=== PATIENT | female | born 1985 | race Caucasian/White ===

== ENCOUNTER → 2016-05-26 | Outpatient (CLI) | payer OTHER, BC ==
[~2016-05-26] MED LIST: LEXA1TAB2 PO; LINZ145C PO; NORCOTAB PO
[2016-05-26 20:21] LABS: MEAN CORPUSCULAR HEMOGLOBIN 29.7 pg (27.0-33.0); MEAN CORPUSCULAR HGB CONC 32.9 g/dl (32.0-36.5); MEAN CORPUSCULAR VOLUME 90.5 fl (80.0-96.0); RED CELL DISTRIBUTION WIDTH 13.1 % (11.5-14.5)
[2016-05-26 21:22] LABS: BASOPHILS 2 % (0-4); EOSINOPHILS 1 % (0-5)
[2016-05-26 22:00] LABS: ERYTHROCYTE SEDIMENTATION RATE 17 mm/hr (0-20)
[2016-05-28 14:16] LABS: Lyme Disease IgG/IgM Antibodie <0.91 ISR (0.00-0.90); Lyme Disease IgM Ab Quantitati <0.80 index (0.00-0.79); SJOGREN'S ANTI SS-A <0.2 AI (0.0-0.9); SJOGREN'S ANTI SS-B <0.2 AI (0.0-0.9)
== END ==
LOC: M ADAMS 18:29
PROVIDERS: ATTEND Physician Assistant Surgical
DX: M79.622 Pain in left upper arm (principal)

== ENCOUNTER 2016-05-29 13:19 | Emergency (ER) | payer OTHER ==
[~2016-05-29] VITALS: Ht 167.6 cm; Wt 74.8 kg
[2016-05-29 13:20] VITALS: BP 146/74
[2016-05-29] MEDS ORDERED: LEXA1TAB2 PO (13:30)
[2016-05-29] MEDS ORDERED: LINZ145C PO (13:30)
[2016-05-29] MEDS ORDERED: NORCOTAB PO (14:40)
== END 2016-05-29 15:18 | disposition home or self-care (01) ==
LOC: M ED 14:57
DX: M25.522 Pain in left elbow (principal); Z79.899 Other long term (current) drug therapy; Z88.5 Allergy status to narcotic agent

== ENCOUNTER 2017-05-11 07:47 | Day surgery (SDC) | payer OTHER ==
[2017-05-11] MEDS ORDERED: ROPIvacaine 0.5% 30 ML INJECTION (J2795 PER 1MG) (07:48)
[2017-05-11] MEDS ORDERED: dexameTHASONE 10 MG/1 ML VIAL PRES.FREE (J1100) (07:48)
[2017-05-11] MEDS ORDERED: LIDOCAINE 1% SDV 5 ML VIAL SQ (08:00)
[2017-05-11] MEDS ORDERED: ceFAZolin 2 GM/D5W 50 ML IV BAG (J0690 PER 500MG) As Ordered (08:11)
[2017-05-11] MEDS ORDERED: ROCURONIUM BROMIDE 50 MG/5 ML VIAL As Ordered (08:26)
[2017-05-11] MEDS ORDERED: fentaNYL 100 MCG/2 ML INJECTION (J3010) As Ordered ×2 (08:26→09:03)
[2017-05-11] MEDS ORDERED: PROPOFOL 200 MG/20 ML VIAL As Ordered ×2 (08:26→14:01)
[2017-05-11] MEDS ORDERED: LIDOCAINE 2% INJ 100 MG/5 ML SDV (FOR ANES.) As Ordered (08:26)
[2017-05-11 08:29] LABS: CONTROL LINE UCG INT CTR LINE PRESENT; URINE PREG TEST NEGATIVE (NEGATIVE)
[2017-05-11] MEDS: LR 1,000 ML IV ×2 (08:55→09:05)
[2017-05-11] MEDS ORDERED: MIDAZOLAM INJ 2 MG/2 ML VIAL (J2250) As Ordered (09:03)
[2017-05-11] MEDS: MIDAZOLAM INJ 2 MG/2 ML VIAL (J2250) IV (09:25)
[2017-05-11] MEDS: fentaNYL 100 MCG/2 ML INJECTION (J3010) IV (09:25)
[2017-05-11] MEDS: EPINEPHrine 1MG/ML INJ 30ML MD-VIAL As Ordered (12:12)
[2017-05-11] MEDS ORDERED: ONDANSETRON 4MG/2ML VIAL (J2405) As Ordered (13:00)
[2017-05-11] MEDS ORDERED: GLYCOPYRROLATE INJ 0.2 MG/ML 2 ML VIAL As Ordered (13:00)
[2017-05-11] MEDS ORDERED: fentaNYL 100 MCG/2 ML INJECTION (J3010) IV (15:00)
[2017-05-11] MEDS ORDERED: HYDROmorphone HCL 1 MG/ML SYRINGE (J1170) IV (15:00)
[2017-05-11] MEDS ORDERED: PERCOCET 5MG/325MG TAB PO (15:00)
[2017-05-11] MEDS ORDERED: LR 1,000 ML IV ×2 (15:00)
[2017-05-11] MEDS ORDERED: ePHEDrine SULFATE 25 MG/5 ML(5MG/ML) SYRINGE As Ordered ×2 (15:45→15:46)
== END 2017-05-11 17:10 | disposition home or self-care (01) ==
LOC: M SDC 07:47
DX: M25.312 Other instability, left shoulder (principal); S40.012A Contusion of left shoulder, initial encounter; W19.XXXA Unspecified fall, initial encounter; Y92.89 Other specified places as the place of occurrence of the external cause; Y93.89 Activity, other specified; Y99.0 Civilian activity done for income or pay; K58.9 Irritable bowel syndrome, unspecified; F41.9 Anxiety disorder, unspecified; Z88.5 Allergy status to narcotic agent; Z79.899 Other long term (current) drug therapy
CPT/HCPCS: 29806

== ENCOUNTER → 2017-11-23 | Outpatient (CLI) | payer BC, OTHER | LOC: M ADAMS 10:03 | DX: J01.41 Acute recurrent pansinusitis (principal) | CPT/HCPCS: 70220 ==

== ENCOUNTER → 2017-11-30 | Outpatient (REF) | payer OTHER ==
[2017-11-30 13:30] LABS: ESTIMATED AVERAGE GLUCOSE 94 MG/DL (60-110); HEMOGLOBIN A1c 4.9 %
== END ==
LOC: M SFHCPLAZ 08:18
DX: H53.9 Unspecified visual disturbance (principal)

== ENCOUNTER → 2017-12-18 | Outpatient (REF) | payer OTHER | LOC: M LAB REF 12:48 | DX: J02.9 Acute pharyngitis, unspecified (principal) | CPT/HCPCS: 87081 ==

== ENCOUNTER → 2017-12-22 | Outpatient (CLI) | payer BC, OTHER | LOC: M RAD 17:57 | DX: J01.01 Acute recurrent maxillary sinusitis (principal) | CPT/HCPCS: 70486 ==

== ENCOUNTER 2018-04-29 07:57 | Emergency (ER) | payer BC, OTHER ==
[~2018-04-29] VITALS: Ht 167.6 cm; Wt 85.0 kg
[~2018-04-29 07:57] MED LIST changes: +BIOT1CAP2 PO; +GABA-843 PO; +TRAM50TA2 PO
[2018-04-29] MEDS ORDERED: RIZA10TA2 PO (08:08)
[2018-04-29] MEDS ORDERED: NS 1,000 ML IV ONE (08:30)
[2018-04-29] MEDS ORDERED: diphenhydrAMINE INJ 50MG/ML VIAL (J1200) IV ONE (08:30)
[2018-04-29] MEDS ORDERED: METOCLOPRAMIDE INJ 10MG/2ML VIAL (J2765) IV ONE (08:30)
[2018-04-29] MEDS ORDERED: KETOROLAC 30 MG/ML VIAL (J1885) IV ONE (08:30)
--- NOTE | 2018-04-29 08:50 | REP ---
Clinical: Acute severe headache . Comparison: none. Findings: The ventricles, sulci, and cisterns are normal in position and appearance. Dawkins-white differentiation is maintained. No acute intracranial hemorrhage, mass/mass effect, pathology or trauma/injury. No evidence for acute infarction. No extra-axial fluid collection. Calvarium is intact. Paranasal sinuses and mastoid air cells are clear. Impression: Normal noncontrast head CT. No evidence for acute intracranial pathology or trauma/injury. Electronically Signed by Lorenzo Delarosa MD 04/29/2018 08:43 A
[2018-04-29 09:24] VITALS: BP 135/62
== END 2018-04-29 09:57 | disposition home or self-care (01) ==
LOC: M ED 07:57
DX: G43.909 Migraine, unspecified, not intractable, without status migrainosus (principal); F41.9 Anxiety disorder, unspecified; K58.9 Irritable bowel syndrome, unspecified; Z88.5 Allergy status to narcotic agent; Z79.899 Other long term (current) drug therapy
CPT/HCPCS: 70450; 81025; 96374; 96375; 99284; J1200; J1885; J2765

== ENCOUNTER 2018-05-12 11:51 | Day surgery (SDC) | payer OTHER ==
[~2018-05-12] VITALS: Ht 167.6 cm; Wt 86.5 kg
[~2018-05-12 11:51] MED LIST changes: +HYDR-3715 PO; +LR 1,000 ML IV ONE; -NORCOTAB PO; +RIZA10TA2 PO
[2018-05-12] MEDS ORDERED: LIDOCAINE 1% MDV 20ML VIAL ONE (11:52)
[2018-05-12] MEDS ORDERED: ROPIvacaine 0.5% 30 ML INJECTION (J2795 PER 1MG) ONE (11:52)
[2018-05-12 12:43] LABS: URINE PREG TEST NEGATIVE (NEGATIVE)
[2018-05-12] MEDS ORDERED: MIDAZOLAM INJ 2 MG/2 ML VIAL (J2250) As Ordered ONE ×2 (13:16→14:55)
[2018-05-12] MEDS ORDERED: fentaNYL 100 MCG/2 ML INJECTION (J3010) As Ordered ONE (13:16)
[2018-05-12] MEDS: MIDAZOLAM INJ 2 MG/2 ML VIAL (J2250) IV PRN ×2 (13:41→13:46)
[2018-05-12] MEDS: fentaNYL 100 MCG/2 ML INJECTION (J3010) IV PRN ×2 (13:41→13:46)
[2018-05-12] MEDS ORDERED: fentaNYL 100 MCG/2 ML INJECTION (J3010) IV PRN (14:30)
[2018-05-12] MEDS ORDERED: ONDANSETRON 4MG/2ML VIAL (J2405) IV PRN (14:30)
[2018-05-12] MEDS ORDERED: LR 1,000 ML IV SCH (14:30)
[2018-05-12] MEDS ORDERED: PROPOFOL 200 MG/20 ML VIAL As Ordered ONE (14:55)
[2018-05-12] MEDS ORDERED: LIDOCAINE 2% INJ 100 MG/5 ML SDV (FOR ANES.) As Ordered ONE (14:55)
[2018-05-12] MEDS ORDERED: fentaNYL 250 MCG/5 ML INJECTION (J3010) As Ordered ONE (14:55)
[2018-05-12] MEDS ORDERED: ROCURONIUM BROMIDE 50 MG/5 ML VIAL As Ordered ONE (14:55)
[2018-05-12] MEDS ORDERED: EPINEPHrine INJ 1 MG/ML 1ML AMP As Ordered ONE (15:10)
[2018-05-12] MEDS ORDERED: dexameTHASONE 4 MG/ML 1ML VIAL (J1100) As Ordered ONE (16:26)
[2018-05-12] MEDS ORDERED: ONDANSETRON 4MG/2ML VIAL (J2405) As Ordered ONE (17:16)
[2018-05-12] MEDS ORDERED: NEOSTIGMINE 10 MG/10 ML VIAL (J2710) As Ordered ONE (17:17)
[2018-05-12] MEDS ORDERED: GLYCOPYRROLATE INJ 0.2 MG/ML 2 ML VIAL As Ordered ONE (17:17)
[2018-05-12 20:11] VITALS: BP 130/77
--- NOTE | 2018-06-08 17:27 | RO ---
DATE OF PROCEDURE: 05/12/2018 PREOPERATIVE DIAGNOSES: 1. Left shoulder recurrent labral tear. 2. Left shoulder impingement. 3. Left shoulder biceps tendonitis. POSTOPERATIVE DIAGNOSES: 1. Left shoulder recurrent anterior labral tear. 2. Left shoulder impingement. PROCEDURE: 1. Left shoulder arthroscopic revision anterior labral repair. 2. Left shoulder subacromial decompression. SURGEON: Dr. Herb De Luna PSYCHOLOGIST ENGINEERING: ANESTHESIA: General with preoperative nerve block. IV FLUIDS: Lactated Ringer's. ESTIMATED BLOOD LOSS: Less than 5 mL. IMPLANTS: Arthrex 3 mm knotless suture tack times one. CLOSURE: Nylon. DESCRIPTION OF PROCEDURE: The patient was identified in the preoperative holding area. The left shoulder was marked by myself. She had an interscalene nerve block by anesthesia, then was brought to the operating room, placed supine on well-padded operating room (OR) table. General anesthesia was induced. Exam under anesthesia revealed a grade 2 plus anterior load and shift, grade 1 plus posterior load and shift. She had 170 degrees of forward flexion. 80 of external rotation with the arm at her side. She was then placed into the right side down lateral decubitus position with an axillary roll and all bony prominences were well padded. The left arm was placed into the Arthrex STaR Sleeve lateral decubitus traction device with 10 pounds of traction. The left shoulder was then prepped and draped in a normal sterile fashion. Appropriate intravenous (IV) antibiotics were administered within 1 hour of incision. A time out was then performed per hospital protocol. The left shoulder was insufflated with lactated Ringer's. A standard posterior viewing portal made with 11-blade. 30-degree arthroscope was introduced into the joint, and a diagnostic arthroscopy was carried out. There was low grade chondromalacia in the anterior humeral head. Glenoid was in good condition. There was obvious evidence of a prior anterior and posterior labral repair. There was some free edge fraying of the anterior labrum. Long head of the biceps was intact and appeared unremarkable. There was no tearing in her rotator cuff. The humeral head was noted to be somewhat subluxated anteriorly. Posterior labrum appeared intact. There was a positive drive-through sign. The anterior-inferior labrum appeared deficient. An anterior working portal was established in the rotator interval to give the appropriate angle for drilling for an anterior anchor. Purple Arthrex cannula was placed. The arthroscope was then placed into that portal; this gave a good view of the posterior labrum where the prior tear was inspected and probed and found to be intact. I then created a third portal, an accessory superolateral portal. On probing the long head of the biceps, there was no tearing. No significant inflammation, no biceps tenodesis indicated. On probing of the anterior labrum, again there was deficiency with loss of bumper in the anterior-inferior labrum. The anterior band of inferior glenohumeral ligament (IGHL) appeared lax. The anterior superior labrum appeared partially healed to bone. The anterior labrum around the equator that had been previously repaired was intact on probing. Intraoperative findings consistent with incomplete healing of the anterior inferior labrum. Given that the patient had symptoms of anterior instability, had a positive anterior load and shift on our exam under anesthesia, and based on these intraoperative findings, I felt that a single anchor low anterior in the glenoid would restore stability. A drill was used to create a socket very low in the anterior glenoid. A 3 mm Knotless SutureTak was then malleted into place with good fixation. A SutureLasso was then used to shuttle a Nitinol wire through the anterior band of the IGHL and through labrum, and then that was used to shuttle the passing stitch. The sutures were then loaded per routine for a Knotless SutureTak. As I tightened the final suture, my research assistant professor applied a posterior drawer to the shoulder, and the suture was maximally tensioned, and this nicely restored the anterior inferior labrum, bringing this up to the glenoid with a nice bumper. Suture was cut with the arthroscopic thermal cutter hand. No posterior labral repair indicated. With the scope and the accessories, anterior superior portal, the humeral head was noted to be centrally located on the glenoid. The arthroscope was then placed into the subacromial space, and a bursectomy was performed with shaver and cautery. Attention was then turned back towards the acromioclavicular (AC) joint which had previously undergone a distal clavicle excision. After clearing out all scar tissue, there appeared to be a good bony resection. I did elect to use the shaver on the bur setting to remove an additional millimeter of bone. However, there was no residual [id number] impingement. She had a full decompression at the first surgery. The shoulder was then irrigated and drained. The rotator cuff on the bursal side was intact. Portals were then closed with nylon suture. After a sterile bandage was applied, she was placed into an ARC 2 sling. She was extubated, transferred to the post-anesthesia care unit (PACU) in stable condition. All counts correct times two. Complications: None.
== END 2018-05-12 20:11 | disposition home or self-care (01) ==
LOC: M SDC 11:51
PROVIDERS: ATTEND Orthopaedic Surgery
DX: S43.492A Other sprain of left shoulder joint, initial encounter (principal); M75.42 Impingement syndrome of left shoulder; K58.9 Irritable bowel syndrome, unspecified; F41.9 Anxiety disorder, unspecified; Z88.5 Allergy status to narcotic agent; Z79.899 Other long term (current) drug therapy; X58.XXXA Exposure to other specified factors, initial encounter; Y93.9 Activity, unspecified; Y92.9 Unspecified place or not applicable; Y99.9 Unspecified external cause status
CPT/HCPCS: 29806; 29826; 64415; 84703; C1713; J0690; J1100; J2250; J2405; J2710; J2795; J3010

== ENCOUNTER 2019-01-04 09:12 | Emergency (ER) | payer OTHER, BC ==
[~2019-01-04] VITALS: Ht 167.6 cm; Wt 90.3 kg
[~2019-01-04 09:12] MED LIST changes: -LR 1,000 ML IV ONE
[2019-01-04] MEDS ORDERED: TOPI25TA10 PO (09:30)
[2019-01-04] MEDS ORDERED: DICL1GEL3 (09:30)
[2019-01-04] MEDS ORDERED: METH4PACK (09:30)
[2019-01-04] MEDS ORDERED: HYDR-3363 (09:30)
--- NOTE | 2019-01-04 10:50 | REP ---
The deep veins demonstrate normal compression and normal Doppler color flow at multiple levels from the brachial veins to the jugular vein. There is no evidence of deep vein thrombus. The Doppler waveforms demonstrate pulsatile venous flow throughout the left upper extremity. No arterial venous fistula could be identified by ultrasound. This wave form pattern could be the result of cardiac reflections. Impression: There is no deep vein thrombus. Pulsatile venous flow pattern. Electronically Signed by Carlos Eduardo Singh MD 01/04/2019 10:42 A
--- NOTE | 2019-01-04 11:36 | REP ---
CT LEFT SHOULDER WITHOUT CONTRAST: HISTORY: Left shoulder surgery. Worse pain and swelling. The patient reports surgery [address]. Comparison radiograph of the left shoulder is from February 12, 2016. TECHNIQUE: Helical scanning is acquired. 3 mm axial images are reformatted. Coronal and sagittal MPR images are generated. CT FINDINGS: There are six separately identifiable radiolucent pin tracks in the glenoid. These have well-defined sclerotic margins. No erosive change is appreciated. No other glenoid deformity is seen. There appears to be superolateral humeral head subcortical cyst formation. There is also evidence of a subtle Hill-Sachs impaction fracture deformity which appears to be old. No cortical erosive changes are seen. No evidence of bony glenoid fracture is appreciated. At the AC joint, there is some diastases suggesting surgically section of the distal clavicle. The glenohumeral and acromioclavicular joints are both normally aligned. IMPRESSION: Status post radiolucent fixation pin tracks in the glenoid. Six separately identifiable pin tracks are seen in the bony glenoid. Old subtle Hill-Sachs impaction fracture deformity of the humeral head. Normal alignment. Findings suggestive of distal claviculectomy. No soft tissue mass or evidence of large effusion. Electronically Signed by Kj Berry MD 01/04/2019 03:29 P
[2019-01-04 12:26] VITALS: BP 129/68
== END 2019-01-04 12:30 | disposition home or self-care (01) ==
LOC: M ED 09:12
DX: M25.512 Pain in left shoulder (principal); G43.909 Migraine, unspecified, not intractable, without status migrainosus; K58.9 Irritable bowel syndrome, unspecified; F41.9 Anxiety disorder, unspecified; Z98.890 Other specified postprocedural states; Z87.81 Personal history of (healed) traumatic fracture; Z79.899 Other long term (current) drug therapy; Z88.5 Allergy status to narcotic agent; Z88.8 Allergy status to other drugs, medicaments and biological substances

== ENCOUNTER 2019-02-04 11:39 | Emergency (ER) | payer BC, OTHER ==
[~2019-02-04] VITALS: Ht 167.6 cm; Wt 89.4 kg
[~2019-02-04 11:39] MED LIST changes: +DICL1GEL3; +HYDR-3363; +METH4PACK; +TOPI25TA10 PO
[2019-02-04] MEDS ORDERED: PRED20TA (11:48)
[2019-02-04] MEDS ORDERED: LEVO750T13 (11:48)
[2019-02-04] MEDS ORDERED: ALBU8.5H (11:48)
[2019-02-04] MEDS ORDERED: GUAISYP9 (11:48)
[2019-02-04 13:18] LABS: BASO % 0.3 % (0.0-1.0); EOS % 0.4 % (0.0-3.0); HEMATOCRIT 41.8 % (36.0-47.0); HEMOGLOBIN 13.4 g/dl (12.0-15.5); LYMPH % 28.1 % (24.0-44.0); MEAN CORPUSCULAR HEMOGLOBIN 29.1 pg (27.0-33.0); MEAN CORPUSCULAR HGB CONC 32.1 g/dl (32.0-36.5); MEAN CORPUSCULAR VOLUME 90.7 fl (80.0-96.0); MONO # 0.9 10^3/uL (0.0-0.8); MONO % 8.1 % (0.0-5.0); NEUTROPHILS # 6.7 10^3/uL (1.5-8.5); NEUTROPHILS % 62.7 % (36.0-66.0); PLATELET COUNT, AUTOMATED 326 10^3/uL (150-450); RED BLOOD COUNT 4.61 10^6/uL (4.00-5.40); WHITE BLOOD COUNT 10.7 10^3/uL (4.0-10.0)
--- NOTE | 2019-02-04 13:42 | REP ---
Clinical: Cough and dyspnea . Comparison: 05/07/2012 . Technique: PA and lateral. Findings: The mediastinum and cardiac silhouette are normal. The lung mendez are clear and without acute consolidation, effusion, or pneumothorax. The skeletal structures are intact and normal. Impression: 1. No acute cardiopulmonary process. Electronically Signed by Lorenzo Delarosa MD 02/04/2019 01:33 P
[2019-02-04 13:49] LABS: BLOOD UREA NITROGEN 14 MG/DL (7-18); CALCIUM LEVEL 9.5 MG/DL (8.5-10.1); CARBON DIOXIDE LEVEL 26 MEQ/L (21-32); CHLORIDE LEVEL 104 MEQ/L (98-107); CREATININE FOR GFR 0.89 MG/DL (0.55-1.30); GLOMERULAR FILTRATION RATE > 60.0 (>60); GLUCOSE, FASTING 84 MG/DL (70-100); POTASSIUM SERUM 4.4 MEQ/L (3.5-5.1); SODIUM LEVEL 136 MEQ/L (136-145)
[2019-02-04 14:24] VITALS: BP 121/61
--- NOTE | 2019-02-04 20:05 | ECGEPIP ---
[facility] - ED Test Date: 2019-02-04 Pat Name: DARREN COURTNEY Department: Room: - Gender: Female Pie Filler: : 1985 Requested By: Mary Mooney Order Number: [id number] Reading MD: Mary Mooney Measurements Intervals [place] Rate: 68 P: -6 OR: 150 QRS: 66 QRSD: 106 T: 30 QT: 390 QTc: 415 Interpretive Statements SINUS RHYTHM NO PRIOR Electronically Signed on 02-04-2019 20:05:02 EST by Mary Mooney
== END 2019-02-04 14:27 | disposition home or self-care (01) ==
LOC: M ED 11:39
DX: J42 Unspecified chronic bronchitis (principal); Z79.899 Other long term (current) drug therapy; Z88.8 Allergy status to other drugs, medicaments and biological substances; Z88.5 Allergy status to narcotic agent

== ENCOUNTER → 2019-02-09 | Outpatient (REF) | payer OTHER ==
[~2019-02-09] MED LIST changes: +ALBU8.5H; +GUAISYP9; +LEVO750T13; +PRED20TA
== END ==
LOC: M SFHCPLAZ 11:44
PROVIDERS: ATTEND Nurse Practitioner Family
DX: R68.89 Other general symptoms and signs (principal)

== ENCOUNTER → 2020-03-14 | Outpatient (CLI) | payer OTHER ==
[~2020-03-14] MED LIST changes: +GABA-282 PO; -GABA-843 PO
== END ==
LOC: M PLALAB 12:15 → M PLAIMG 13:09
PROVIDERS: ATTEND Physician Assistant
DX: Z20.822 Contact with and (suspected) exposure to COVID-19 (principal); R05 Cough; R06.02 Shortness of breath

== ENCOUNTER → 2020-03-19 | Outpatient (CLI) | payer BC, OTHER ==
--- NOTE | 2020-03-19 12:45 | REP ---
INDICATION: COUGH, SOB. COMPARISON: Comparison chest x-ray February 04, 2019. TECHNIQUE: Two views.. FINDINGS: The lungs are well inflated and free of infiltrate. The pleural angles are sharp. The heart size is normal. Pulmonary vasculature is not increased. No significant bony abnormality is seen. IMPRESSION: Negative chest x-ray. <Electronically signed by Den Berry > 03/19/20 [id number]
== END ==
LOC: M ADAMS 10:04
PROVIDERS: ATTEND Physician Assistant
DX: R05 Cough (principal); R06.02 Shortness of breath

== ENCOUNTER → 2020-05-28 | Outpatient (CLI) | payer BC, OTHER | LOC: M LABSMTC 13:46 | PROVIDERS: ATTEND Anesthesiology | DX: Z20.828 Contact with and (suspected) exposure to other viral communicable diseases (principal); Z11.59 Encounter for screening for other viral diseases ==

== ENCOUNTER 2020-06-01 09:58 | Day surgery (SDC) | payer BC, OTHER ==
[~2020-06-01] VITALS: Ht 170.2 cm; Wt 94.3 kg
[~2020-06-01 09:58] MED LIST changes: +GABA-1171; +LIDOCAINE 2% 100MG/5ML SDV (FOR ANES.) As Ordered ONE; +METH-1164; +NS 1,000 ML IV ONE; +TRAZ-252; +propofoL 200 MG/20 ML VIAL As Ordered ONE
--- NOTE | 2020-06-01 11:33 | ROOR ---
Patient Name: Estela Tavares Procedure Date: 06/01/2020 11:14 AM Date of : 1985 Age: 34 Room: [facility] Gender: Female Note Status: Finalized Procedure: Total Colonoscopy to Cecum Indications: Colon cancer screening in patient at increased risk: Family history of 1st-degree relative with colon polyps, High risk colon cancer surveillance: Personal history of colonic polyps, Last colonoscopy: 2011 Providers: Ghanshyam Dias MD Referring MD: Génesis Lanza NP Requesting Provider: Medicines: Monitored Anesthesia Care Complications: No immediate complications. Procedure: Pre-Anesthesia Assessment: - The heart rate, respiratory rate, oxygen saturations, blood pressure, adequacy of pulmonary ventilation, and response to care were monitored throughout the procedure. The Colonoscope was introduced through the anus and advanced to the cecum, identified by appendiceal orifice and ileocecal valve. The colonoscopy was performed without difficulty. The patient tolerated the procedure well. The quality of the bowel preparation was excellent. Findings: The perianal and digital rectal examinations were normal. Non-bleeding internal hemorrhoids were found during retroflexion. The hemorrhoids were small and Grade I (internal hemorrhoids that do not prolapse). No other significant abnormalities were identified in a careful examination of the remainder of the colon. The exam was otherwise without abnormality on direct and retroflexion views. Impression: - Non-bleeding internal hemorrhoids. - The examination was otherwise normal on direct and retroflexion views. - No specimens collected. - The exam was otherwise normal to the cecum. Recommendation: - Patient has a contact number available for emergencies. The signs and symptoms of potential delayed complications were discussed with the patient. Return to normal activities tomorrow. Written discharge instructions were provided to the patient. - High fiber diet. - Discharge patient to home. - Continue present medications. - Repeat colonoscopy in 5 months for surveillance. - Return to referring physician. - The findings and recommendations were discussed with the patient. Procedure Code(s): --- Professional --- G0105, Colorectal cancer screening; colonoscopy on individual at high risk Diagnosis Code(s): --- Professional --- Z83.71, Family history of colonic polyps Z86.010, Personal history of colonic polyps K64.0, First degree hemorrhoids CPT copyright 2019 [employer]. All rights reserved. The codes documented in this report are preliminary and upon surveillance sensor officer review may be revised to meet current compliance requirements. Ghanshyam Dias MD Ghanshyam Dias MD 06/01/2020 11:33:19 AM Electronically signed by Ghanshyam Dias MD Number of Addenda: 0 Note Initiated On: 06/01/2020 11:14 AM Estimated Blood Loss: Estimated blood loss: none.
[2020-06-01 11:52] VITALS: BP 115/64
== END 2020-06-01 11:54 | disposition home or self-care (01) ==
LOC: M OPP 09:58
PROVIDERS: ATTEND Internal Medicine Gastroenterology
DX: Z12.11 Encounter for screening for malignant neoplasm of colon (principal); Z83.71 Family history of colonic polyps; Z86.010 Personal history of colon polyps; K64.0 First degree hemorrhoids; K58.9 Irritable bowel syndrome, unspecified; F41.9 Anxiety disorder, unspecified; G43.909 Migraine, unspecified, not intractable, without status migrainosus; J45.909 Unspecified asthma, uncomplicated; Z87.891 Personal history of nicotine dependence; Z88.5 Allergy status to narcotic agent; Z88.8 Allergy status to other drugs, medicaments and biological substances; Z79.899 Other long term (current) drug therapy

== ENCOUNTER → 2020-08-10 | Outpatient (REF) | payer OTHER, BC ==
[~2020-08-10] MED LIST changes: -LIDOCAINE 2% 100MG/5ML SDV (FOR ANES.) As Ordered ONE; -NS 1,000 ML IV ONE; -propofoL 200 MG/20 ML VIAL As Ordered ONE
== END ==
LOC: M SFHCWAGY 10:09
PROVIDERS: ATTEND Advanced Practice Midwife
DX: Z12.4 Encounter for screening for malignant neoplasm of cervix (principal); Z77.9 Other contact with and (suspected) exposures hazardous to health
CPT/HCPCS: 87624; G0123

== ENCOUNTER 2021-04-25 11:15 | Emergency (ER) | payer BC, OTHER ==
[~2021-04-25] VITALS: Ht 170.2 cm; Wt 99.9 kg
[2021-04-25 11:15] VITALS: BP 124/77
[2021-04-25] MEDS ORDERED: ACET650T15 PO (11:23)
[2021-04-25] MEDS ORDERED: ADV250INH (11:23)
[2021-04-25] MEDS ORDERED: DOXY100T (11:23)
[2021-04-25] MEDS ORDERED: FLUTISP (11:23)
[2021-04-25] MEDS ORDERED: KETOROLAC 30 MG/ML 1ML VIAL IV ONE (12:30)
[2021-04-25] MEDS ORDERED: NS 1,000 ML IV ONE (12:30)
[2021-04-25 13:14] LABS: BASO # 0.1 10^3/uL (0.0-0.2); BASO % 1.2 % (0.0-1.0); EOS # 0.1 10^3/uL (0.0-0.5); EOS % 0.6 % (0.0-3.0); HEMATOCRIT 35.6 % (36.0-47.0); HEMOGLOBIN 11.2 g/dl (12.0-15.5); LYMPH # 2.1 10^3/uL (1.5-5.0); LYMPH % 20.4 % (24.0-44.0); MEAN CORPUSCULAR HEMOGLOBIN 30.4 pg (27.0-33.0); MEAN CORPUSCULAR HGB CONC 31.5 g/dl (32.0-36.5); MEAN CORPUSCULAR VOLUME 96.5 fl (80.0-96.0); MONO # 0.8 10^3/uL (0.0-0.8); MONO % 7.4 % (2.0-8.0); NEUTROPHILS # 7.3 10^3/uL (1.5-8.5); NEUTROPHILS % 70.1 % (36.0-66.0); PLATELET COUNT, AUTOMATED 304 10^3/uL (150-450); RED BLOOD COUNT 3.69 10^6/uL (4.00-5.40); WHITE BLOOD COUNT 10.4 10^3/uL (4.0-10.0)
[2021-04-25 13:36] LABS: ERYTHROCYTE SEDIMENTATION RATE 33 mm/hr (0-20)
[2021-04-25 13:47] LABS: MONO REFLEX EBV COMP NEGATIVE (NEGATIVE)
[2021-04-25 13:53] LABS: ALBUMIN 3.4 GM/DL (3.2-5.2); ALT/SGPT 35 U/L (12-78); BILIRUBIN,TOTAL 0.3 MG/DL (0.2-1.0); BLOOD UREA NITROGEN 11 MG/DL (7-18); C REACTIVE PROTEIN QUANTITATIV 1.09 MG/DL (0.00-0.30); CARBON DIOXIDE LEVEL 23 MEQ/L (21-32); CHLORIDE LEVEL 110 MEQ/L (98-107); CREATININE FOR GFR 0.88 MG/DL (0.55-1.30); GLOMERULAR FILTRATION RATE > 60.0 (>60); GLUCOSE, FASTING 84 MG/DL (70-100); POTASSIUM SERUM 4.2 MEQ/L (3.5-5.1); SODIUM LEVEL 139 MEQ/L (136-145); THYROID STIMULATING HORMONE 0.555 uIU/ML (0.358-3.740); TOTAL PROTEIN 6.8 GM/DL (6.4-8.2)
[2021-04-25] MEDS ORDERED: ISOVUE-370 76% 100ML VIAL As Ordered ONE (13:57)
[2021-04-26 13:07] LABS: EBV VIRAL CAPSID AG IgG 38.5 U/mL (0.0-17.9); EBV VIRAL CAPSID AG IgM <36.0 U/mL (0.0-35.9)
== END 2021-04-25 16:05 | disposition home or self-care (01) ==
LOC: M ED 11:15
DX: B34.9 Viral infection, unspecified (principal); Z86.16 Personal history of COVID-19; K58.9 Irritable bowel syndrome, unspecified; F41.9 Anxiety disorder, unspecified; Z79.899 Other long term (current) drug therapy; Z88.5 Allergy status to narcotic agent; Z88.8 Allergy status to other drugs, medicaments and biological substances
CPT/HCPCS: 70491; 71275; 80053; 84443; 84702; 85025; 85379; 85652; 86140; 86308; 86664; 86665; 87798; 87804; 96361; 96374; 99283; J1885; Q9967

== ENCOUNTER 2021-11-07 15:38 | Emergency (ER) | payer BC, OTHER ==
[~2021-11-07] VITALS: Ht 170.2 cm; Wt 83.2 kg
[2021-11-07 15:38] VITALS: BP 130/74
[~2021-11-07 15:38] MED LIST changes: +ACET650T15 PO; +ADV250INH; +DOXY100T; +FLUTISP; +LEVO1TAB40; -LEVO750T13
== END 2021-11-07 15:55 | disposition left against medical advice (07) ==
LOC: M ED 15:38
DX: Z53.21 Procedure and treatment not carried out due to patient leaving prior to being seen by health care provider (principal)

== ENCOUNTER → 2022-04-17 | Outpatient (CLI) | payer BC, OTHER ==
[2022-04-17 17:17] LABS: BASO # 0.1 10^3/uL (0.0-0.2); BASO % 0.9 % (0.0-1.0); EOS # 0.1 10^3/uL (0.0-0.5); EOS % 0.8 % (0.0-3.0); HEMATOCRIT 36.5 % (36.0-47.0); LYMPH % 30.6 % (24.0-44.0); MEAN CORPUSCULAR HEMOGLOBIN 30.6 pg (27.0-33.0); MEAN CORPUSCULAR HGB CONC 32.9 g/dl (32.0-36.5); MEAN CORPUSCULAR VOLUME 93.1 fl (80.0-96.0); MONO # 0.6 10^3/uL (0.0-0.8); NEUTROPHILS % 61.5 % (36.0-66.0); PLATELET COUNT, AUTOMATED 266 10^3/uL (150-450); RED BLOOD COUNT 3.92 10^6/uL (4.00-5.40); WHITE BLOOD COUNT 9.7 10^3/uL (4.0-10.0)
[2022-04-17 17:46] LABS: RHEUMATOID FACTOR QUANT 5.6 IU/ML (<14)
[2022-04-17 17:50] LABS: ALBUMIN 4.4 G/DL (3.2-5.2); ALKALINE PHOSPHATASE 63 U/L (46-116); ALT/SGPT 18 U/L (7.0-40); AST/SGOT 16 U/L (<34); BILIRUBIN,TOTAL 0.3 MG/DL (0.3-1.2); BLOOD UREA NITROGEN 24 MG/DL (9-23); CALCIUM LEVEL 9.6 MG/DL (8.5-10.1); CARBON DIOXIDE LEVEL 22 MMOL/L (20-31); CHLORIDE LEVEL 106 MMOL/L (98-107); CREATININE FOR GFR 0.83 MG/DL (0.55-1.30); GLOMERULAR FILTRATION RATE > 60.0 (>60); GLUCOSE, FASTING 80 MG/DL (60-100); SODIUM LEVEL 138 MMOL/L (136-145); THYROID STIMULATING HORMONE 1.366 uIU/ML (0.55-4.78); TOTAL 25(OH) VITAMIN D 20.1 NG/ML (20.0-100.0); TOTAL PROTEIN 7.5 G/DL (5.7-8.2)
[2022-04-17 17:53] LABS: ERYTHROCYTE SEDIMENTATION RATE 22 mm/hr (0-20)
[2022-04-19 15:10] LABS: ANTI DOUBLE STRAND-DNA AB <1 IU/mL (0-9); ANTINUCLEAR ANTIBODIES DIRECT Positive (Negative); RNP ANTIBODIES 3.1 AI (0.0-0.9); SJOGREN'S ANTI SS-A <0.2 AI (0.0-0.9); SJOGREN'S ANTI SS-B <0.2 AI (0.0-0.9); SMITH ANTIBODIES <0.2 AI (0.0-0.9)
== END ==
LOC: M PLALAB 16:46
PROVIDERS: ATTEND Psychiatry & Neurology Neurology
DX: R51.9 Headache, unspecified (principal)

== ENCOUNTER → 2022-06-03 | Outpatient (CLI) | payer BC, OTHER ==
[~2022-06-03] MED LIST changes: +FLUT50SP17; -FLUTISP
[2022-06-03 20:05] LABS: URIC ACID 3.5 MG/DL (3.1-7.8)
[2022-06-03 20:07] LABS: C REACTIVE PROTEIN QUANTITATIV < 0.40 MG/DL (<1.0)
[2022-06-05 23:10] LABS: ANA (HEP2) Positive (.); SSA SJOGRENS A <0.2 AI (0.0-0.9); SSB SJOGRENS B <0.2 AI (0.0-0.9)
== END ==
LOC: M PLALAB 16:17
PROVIDERS: ATTEND Nurse Practitioner Adult Health
DX: R76.8 Other specified abnormal immunological findings in serum (principal); J02.9 Acute pharyngitis, unspecified